=== PATIENT | female | born 1955 | race Caucasian/White ===

== ENCOUNTER 2023-06-13 06:55 | Day surgery (SDC) | payer MEDICARE, OTHER ==
[2023-05-31 15:25] VITALS: BP 122/74
[~2023-06-13] VITALS: Ht 175.3 cm; Wt 114.0 kg
[~2023-06-13 06:55] MED LIST: SIMVASTATIN20 MG PO; SYNTHROID137 MCG PO; VITAMIN D310 MC4 PO; ZESTRIL2.5 MG PO
[2023-06-13 07:15] VITALS: BP 163/87
[2023-06-13] MEDS ORDERED: VITAMIN C250 MG PO (07:22)
[2023-06-13] MEDS ORDERED: IRON18 MG PO (07:23)
[2023-06-13] MEDS ORDERED: SENNA LAX8.6 MG PO (10:15)
[2023-06-13] MEDS ORDERED: XARELTO10 MG PO (10:15)
[2023-06-13] MEDS ORDERED: OXYCODONE HCL5 MG PO (10:15)
[2023-06-13] MEDS ORDERED: GABAPENTIN300 MG PO (10:15)
[2023-06-13] MEDS ORDERED: DICLOFENAC SODI75 MG PO (10:16)
--- NOTE | 2023-06-13 10:48 | NUR ---
06/13/23 1048 Masha Chavira 1017 PT TO PACU FROM OR. AWAKE, SPINAL LEVEL L2 UNABLE TO MOVE LEGS AT THIS TIME, NO PAIN. PT HAS NPA IN PLACE L NARE WITH MASK AND O2 AT 6L. BREATHING EVEN AND UNLABORED. DRESSING TO R KNEE CDI, CRYO CUFF APPLIED. ON QUE AT 4ML/HR. 1035 NPA AND MASK DC'D. 1037 OS SAT 90, NASAL CANNULA APPLIED AND O2 AT 4L. ENCOURAGED PT TO COUGH AND DEEP BREATH. PT AWAKE AND ORIENTED. HAVING APPROPRIATE CONVERSATION. 1039 DRSG CDI. PT STILL UNABLE TO MOVE LOWER EXTREMITIES. 1046 PT TAKING SIPS OF WATER, TOLERATING WELL. O2 DECREASEED TO 2 L, SAT 98. PT TOLERATING WELL
[2023-06-13 11:19] VITALS: BP 125/70
--- NOTE | 2023-06-13 11:25 | NUR ---
1105: PT RETURNS TO UNIT VIA STRETCHER FROM PACU. AWAKE AND ORIENTED ON ARRIVAL. HOLDS APPROPRIATE CONVERSATION. VSS, RESP EVEN AND UNLABORED ON 2L VIA NC. O2 SAT STABLE >99%. SPINAL IN PLACE, L5. C/O 5/10 PAIN IN THE KNEE. ECGD TO EAT PROVIDED CRACKERS PRIOR TO PO PAIN RX. AMBROCIO MARTÍNEZ TO REVIEW PAIN CONTROL OPTIONS WITH PT. DRESSING C/D/I, CMS WNL. SKYLER HOSE, FOOTPUMPS AND CRYO CUFF IN PLACE. PT WITHOUT NEEDS AT THIS TIME. CALL LIGHT WITHIN REACH
--- NOTE | 2023-06-13 11:25 | NUR ---
IN PT ROOM FOR PAIN ASSESSMENT. PT REPORTS PAIN AN ACHY 5/10 ON BACK OF KNEE. PRIMITIV[employer] ASSOCIATE SOFTWARE DEVELOPER CONSULTED AND ICE PACK MOVED TO BACK OF KNEE AT THIS TIME. PT WOULD LIKE TO REFRAIN FROM ANY NARCOTICS IF POSSIBLE, BUT STATES IF PAIN GETS SIGNIFICANT ENOUGH, SHE WOULD BE WILLING TO TAKE SOMETHING FOR IT. CALL LIGHT WITHIN REACH, NO FURTHER NEEDS AT THIS TIME.
--- NOTE | 2023-06-13 12:08 | NUR ---
IN PT ROOM FOR ASSESSMENT AND VS. PT REPORTS PAIN HAS RESOLVED TO 3/10 (ACHEY), PT STATES PAIN IS TOLERABLE AT THIS TIME W/REPOSITIONING OF CRYO CUFF TO BACKSIDE OF KNEE. PT STATES NO NAUSEA, DIZZINESS, OR N/T AT THIS TIME. NO ACUTE CHANGES TO SURGICAL SITE DRESSING, REMAINS C/D/I. PT FRIEND NOW AT BEDSIDE. PT TITRATED TO RA AND O2 REMAINS >90% VIA PULSE OX. RESPIRATIONS ARE EVEN AND UNLABORED, NO SIGNS OF DISTRESS. PT DENIES HUNGER OR DESIRE FOR LUNCH AT THIS TIME. CALL LIGHT WITHIN REACH, NO FURTHER NEEDS AT THIS TIME.
[2023-06-13 12:09] VITALS: BP 142/80
--- NOTE | 2023-06-13 12:45 | NUR ---
PT WITH PHYSICAL THERAPY AT THIS TIME. UNMEASURABLE VOID OF CLEAR/YELLOW URINE, BUT QUANTITY SUFFICIENT.
--- NOTE | 2023-06-13 13:15 | NUR ---
PT BACK FROM PHYSICAL THERAPY AND LAYING IN BED. VS TAKEN. PT REPORTS PAIN 3/10 AND TOLERABLE AT THIS TIME. CRYO CUFF POSITIONED TO BACK OF KNEE, SKYLER HOSE, FOOT PUMPS, AND ONQ PUMP AT [address]/HEEL PROTECTORS. SURGICAL SITE DRESSING REMAINS C/D/I POST AMBULATION. LUNCH ORDER PLACED. CALL LIGHT WITHIN REACH, NO FURTHER NEEDS AT THIS TIME.
[2023-06-13 13:16] VITALS: BP 130/70
--- NOTE | 2023-06-13 14:02 | OR ---
[facility] [address] [facility] [place] [place] [address] Signed DATE OF OPERATION: 06/13/2023 SURGEON: Vernon Garcia MD PREOPERATIVE DIAGNOSIS: Severe DJD, right knee. POSTOPERATIVE DIAGNOSIS: Severe DJD, right knee. PROCEDURE PERFORMED: Right total knee arthroplasty. MULTI MEDIA SPECIALIST: Marely Molina PA-C. Marely was present and critical for all portions of procedure. ANESTHESIA: Spinal. BLOOD LOSS: 175 mL. TOURNIQUET TIME: Zero. IMPLANTS: [place] Triathlon size 4, 32 mm patella and 10 mm poly. BRIEF HISTORY: Mariangel is a 68-year-old female with progressive worsening of osteoarthritis. This was nonresponsive to nonoperative care. Risks and benefits of operative treatment were discussed with her and she elected to proceed. DESCRIPTION OF PROCEDURE: Once consent was obtained, she was taken to the operating room. After adequate anesthesia she was placed on the operating room table. All downside pressure points were well padded. The right knee was then prepped and draped in the standard sterile fashion. The knee was then approached through a standard anterior midline incision and carried through the skin and subcutaneous tissue. Midvastus arthrotomy was performed. Electronically Signed By: VERNON GARCIA MD 06/13/23 1402 PATIENT NAME: MARIANGEL LOMAX OPERATIVE REPORT DATE OF : 51 REPORT #: [id number] PHYSICIAN: VERNON GARCIA MD PCP: PA LEVIN DO REPORT IS CONFIDENTIAL AND NOT TO BE RELEASED WITHOUT AUTHORIZATION [facility] [address] [place], [place] [address] Signed The infrapatellar fat pad was excised and the MCL was elevated around to the posteromedial corner. The anterior horns of menisci were transected. The ACL was transected and the PCL was found to be intact. The osteophytes were removed and due to fairly tight mobilization of the patella, we did go ahead and cut the patella and put the protective base plate on it. This allowed good mobilization of the patella. Once this was accomplished, the navigation computer arrays were placed in the medial femoral condyle and the proximal tibia. The leg was then registered with the computer followed by the fine anatomic points of the knee. The varus and valgus testing was undertaken. She had a fairly tight varus knee and some adjustments were made to the position of the implant. Once this was accomplished, the robot was brought in. The four straight cuts and 2 angle cuts were made with care taken to protect surrounding soft tissue. The bony cuts were then removed as were any remaining osteophytes. The posterior osteophytes were removed off the femur. No release was performed. The patella was drilled and sized for a 32 mm patella. The distal femur was drilled and the proximal tibia was finished using the keel punch followed by the drill holes. The implants were obtained. The tibia was impacted into position first followed by the polyethylene. The femur was then impacted. The knee was extended and loaded. The patella was clamped into position and the clamp was removed. Excellent apposition of the surfaces was obtained. Once this was completed, the knee was taken through range of motion. The patella was noted to track well. The knee was then irrigated using one bottle of Surgiphor followed by normal saline. The periarticular soft tissues were injected with 100 mL of ropivacaine and Toradol mixture. On-Q pain pump was percutaneously placed into the adductor canal from the suprapatellar pouch. The arthrotomy was then closed using a combination of #2 FiberWire and #2 Stratafix, subcutaneous tissue with 0 Stratafix and skin with 3-0 Stratafix. The skin was then sealed with LiquiBand and Steri-Strips. The wound was dressed with an Acticoat-7 dressing ABDs and Edgar wrap. She tolerated the procedure well. All sponge, needle, and instrument counts were correct. Vernon Garcia MD BA/MODL /[id number] Electronically Signed By: VERNON GARCIA MD 06/13/23 1402 PATIENT NAME: MARIANGEL LOMAX OPERATIVE REPORT DATE OF : 51 REPORT #: [id number] PHYSICIAN: VERNON GARCIA MD PCP: PA LEVIN DO REPORT IS CONFIDENTIAL AND NOT TO BE RELEASED WITHOUT AUTHORIZATION [address] [place], [place] [address] Signed Copies: ~ Electronically Signed By: VERNON GARCIA MD 06/13/23 1402 PATIENT NAME: MONIEMARIANGEL LEE OPERATIVE REPORT DATE OF : 51 REPORT #: [id number] PHYSICIAN: VERNON GARCIA MD PCP: PA LEVIN DO REPORT IS CONFIDENTIAL AND NOT TO BE RELEASED WITHOUT AUTHORIZATION
--- NOTE | 2023-06-13 14:05 | NUR ---
DISCUSSED PT STATUS AND MET REQUIREMENTS W/DR. OBREGON. VERBAL DISCHARGE BY MINDI HRECULES AT THIS TIME.
--- NOTE | 2023-06-13 14:15 | NUR ---
IN PT ROOM AFTER FINISHING MEAL. PT STATES SHE FEELS COMFORTABLE GOING HOME AT THIS TIME. THIS RN IN ROOM TO ASSIST PT WITH GETTING DRESSED.
--- NOTE | 2023-06-13 14:30 | NUR ---
DISCHARGE MEDS GIVEN (SEE EMAR). DISCHARGE EDUCATION PROVIDED, PT STATES VERBAL UNDERSTANDING AND NO FURTHER QUESTIONS OR NEEDS AT THIS TIME. PT OFF OF UNIT VIA WC, ALL BELONGINGS IN PT POSSESSION AT THIS TIME. STANDBY ASSIST TO PASSENGER SIDE OF FRIEND'S VEHICLE, GAIT IS STABLE W/ASSISTANCE. PT REPORTS NO FURTHER NEEDS AT THIS TIME.
[2023-06-13 14:35] VITALS: BP 125/65
== END 2023-06-13 14:35 | disposition home or self-care (01) ==
LOC: DS 06:55
PROVIDERS: ATTEND Specialist
PROC: 0SRC0JZ Replacement of Right Knee Joint with Synthetic Substitute, Open Approach (ICD-10-PCS; principal; 2023-06-13 09:15)
DX: M17.11 Unilateral primary osteoarthritis, right knee (principal); I10 Essential (primary) hypertension; E78.00 Pure hypercholesterolemia, unspecified; E03.9 Hypothyroidism, unspecified; Z79.899 Other long term (current) drug therapy
CPT/HCPCS: 01400; 64447; 64450; 76942; 97161; A9270; C1713; C1776; J0690; J1100; J1885; J2001; J2250; J2405; J2704; J2765; J2795; J3010; J7040; J7121